=== PATIENT | male | born 1955 | race Caucasian/White ===

== ENCOUNTER 2019-04-14 18:40 | Inpatient (IN) | payer SELFPAY ==
[2019-04-14] MEDS ORDERED: Piperacillin/Tazobactam 3.375 GM VIAL ONE (21:47)
[2019-04-14] MEDS ORDERED: Ondansetron ODT 4 MG TAB SL PRN (23:11)
[2019-04-14] MEDS ORDERED: Ondansetron PF 4 MG/2 ML Vial IVP PRN (23:11)
[2019-04-14] MEDS: Lactated Ringer's 1,000 ML IV SCH (23:33)
[2019-04-15 00:58] VITALS: BMI 34.5
[2019-04-15] MEDS: Piperacillin/Tazobactam 3.375 GM in Sodium Chloride 0.9% 100 ML IVPB SCH ×4 (03:28→22:52)
[2019-04-15] MEDS ORDERED: Vancomycin HCl 1 GM in Premix Bag 1 BAG IVPB SCH (04:00)
[2019-04-15] MEDS: Vancomycin HCl 1.5 GM in Sodium Chloride 0.9% 250 ML 300 ML IVPB SCH ×3 (04:15→20:20)
[2019-04-15 04:47] LABS: #Basophils 0.1 thou/uL (0.0-0.2); #Eosinphils 0.4 thou/uL (0.0-0.7); #Lymphocytes 1.4 thou/uL (1.20-3.40); #Monocytes 0.8 thou/uL (0.11-0.59); #Neutrophils 5.4 thou/uL (1.40-6.50); %Basophils 0.6 % (0.0-1.0); %Eosinophils 4.6 % (0.0-10.0); %Lymphocytes 17.7 % (21.0-51.0); %Monocytes 10.1 % (0.0-10.0); %Neutrophils 66.9 % (42.0-75.0); Hemoglobin 12.3 g/dL (14.0-18.0); Mean Corpuscular HGB CONC 33.1 g/dL (32.0-36.0); Mean Corpuscular Hemoglobin 31.9 pg (27.0-31.0); Mean Corpuscular Volume 96.4 fL (78.0-98.0); Mean Platelet Volume 6.8 fL (7.4-10.4); Platelet Count 266 thou/uL (130-400); RBC Distribution Width 13.1 % (11.5-14.5); Red Blood Cell (RBC) Count 3.85 mill/uL (4.70-6.10)
[2019-04-15 05:08] LABS: Anion Gap 12 mmol/L (10-20); BUN (Urea Nitrogen) 9 mg/dL (8.4-25.7); Calc. Creatinine Clearance 151 mL/min (70-130); Calcium 8.9 mg/dL (7.8-10.44); Carbon Dioxide 25 mmol/L (23-31); Chloride 106 mmol/L (98-107); Estimated GFR-MDRD Greater than 90; Glucose 155 mg/dL (80-115); Potassium 3.8 mmol/L (3.5-5.1); Sodium 139 mmol/L (136-145)
--- NOTE | 2019-04-15 07:08 | HP ---
TIME OF ASSESSMENT: 0100 hours. PRIMARY CARE PHYSICIAN: None. HISTORY OF PRESENT ILLNESS: Mr. Miguel is a 63-year-old gentleman, who presents with increasing pain and swelling involving the left foot, which started 2 weeks ago. He has a history of prior amputation of the great big toe and has not had any followup. He has not seen anyone until today and states he became concerned about persisting and progressing infection involving the second toe on the left foot. The patient denies any history of diabetes mellitus or neuropathy. He was seen in the emergency department and had vitals done, which were normal. He did not have any fever. He had been noted to have multiple ulcerations to the anterior portion of the left foot with erythema, swelling, and foul odor. The patient was started on IV antibiotics with Zosyn and vancomycin. The case was discussed with Surgery and the plan is to admit the patient and Dr. Crump will assist the patient in the morning. The patient has undergone imaging of the foot, which showed amputation of the great toes when compared to the prior study done in August of 2014. Erosive change and periosteal reaction at the first MTP joint and distal first metatarsal could not be excluded. Otherwise, no other evidence for focal osteomyelitis. There was soft tissue swelling consistent with cellulitis. Laboratory studies were done, showing a normal white blood count. Renal function also normal. Lactic acid was 1. Currently, the patient is found resting comfortably and states he is in no discomfort. Reports 0/10 pain. REVIEW OF SYSTEMS: Apart from those mentioned above in HPI, all other review of systems are negative. PAST MEDICAL HISTORY: 1. Enlarged prostate, long indwelling Mcgill catheter. 2. Depression. PAST SURGICAL HISTORY: 1. Previous left great toe amputation. 2. Tonsillectomy. SOCIAL HISTORY: The patient denies any tobacco use, alcohol consumption, or illicit drug use. ALLERGIES: NO KNOWN DRUG ALLERGIES. CURRENT MEDICATIONS: 1. Proscar 5 mg p.o. daily. 2. Tamsulosin 0.4 mg p.o. daily. PHYSICAL EXAMINATION: GENERAL: The patient appears well developed, well nourished, is in no acute distress. He is found resting comfortably in bed. VITAL SIGNS: Temperature 97.9, pulse 72, respirations 18, O2 saturation 98% on room air, and blood pressure 140/66. HEENT: Normocephalic and atraumatic. Pupils are equal, round, reactive to light. Sclerae icterus. Oropharynx is clear. NECK: Supple. LUNGS: Clear to auscultation bilaterally without any wheezes, rales, or rhonchi. CARDIAC: Regular rate and rhythm. ABDOMEN: Soft, nontender, nondistended. Normoactive bowel sounds present. EXTREMITIES: Notable for bilateral lower extremity swelling, worse on the left. Some warmth to touch of the left ankle region without any erythema. The patient with dressing in place covering the left foot. Examination deferred as per patient's request. Per ED assessment, he had ulcerations present on the ventral surface toward the site of amputation with overlying cellulitis and foul order. NEUROLOGIC: Alert and oriented x3. No neuro deficits. LABORATORY DATA: WCC 8, Hgb 12.3, Hct 37.1, Platelets 266. Na+ 139, K+ 3.8, Anion Gap 12, BUN 9, Creatinine 0.82, GFR 90, Glucose 155, Calcium 8.9. IMAGING DATA: As per HPI. IMPRESSION AND PLAN: Mr. Miguel is a 63-year-old gentleman, who is being admitted for management of the following; 1. Left foot cellulitis. The patient is started on IV antibiotics, which we will continue. Consultation has been placed to General surgery as well as Wound Care. The patient without any pain at this present time. He remains afebrile and lactic acid is normal. We will continue to monitor. 2. BPH. The patient with long-term catheter in place and good urinary output. We will resume home medications once verified. 3. Gastrointestinal prophylaxis, with famotidine. 4. Deep venous thrombosis prophylaxis. Hold pharmacological prophylaxis until seen by the Surgery. The patient does have mechanical SCDs in place. Has longstanding lower extremity edema, which is worse on the left than the right. We will obtain venous Dopplers. 5. Code status, full. His surrogate decision maker is his friend, Gabby Franklin. The patient's case to be discussed with attending for further recommendations. Job ID: [id number] MTDD
--- NOTE | 2019-04-15 08:04 | ULT ---
PRELIMINARY REPORT/[facility]/EMERGENCY AFTER HOURS PROCEDURE: PROCEDURE INFORMATION: Exam: US Duplex Lower Extremity Veins Exam date and time: 04/15/2019 2:58 AM Clinical history: 63 years old, male; Edema, localized; Lower extremity, bilateral; Patient HX: Farrukh palacios TECHNIQUE: Imaging protocol: Real-time duplex ultrasound of the Lower Extremities with 2-D roberson scale, color Dop pler flow and spectral waveform analysis with image documentation. Complete exam focused on the bilat eral lower extremity veins. COMPARISON: No relevant prior studies available. FINDINGS: Right deep veins: Unremarkable. The common femoral, femoral, proximal profunda femoral and popliteal veins are patent without thrombus. Normal Doppler waveforms. Normal compressibility and/or augmentati on response. Right superficial veins: Saphenofemoral junction is patent without thrombus. Left deep veins: Unremarkable. The common femoral, femoral, proximal profunda femoral and popliteal v eins are patent without thrombus. Normal Doppler waveforms. Normal compressibility and/or augmentatio n response. Left superficial veins: Saphenofemoral junction is patent without thrombus. Lymph nodes: There are prominent lymph nodes within the left groin/upper thigh, probably reactive. Soft tissues: Mild soft tissue edema is noted. IMPRESSION: No evidence of acute DVT bilaterally. Thank you for allowing us to participate in the care of your patient. Dictated and Authenticated by: Benja Borrero MD 04/15/2019 4:04 AM Central Time ([place] & [place]) FINAL REPORT BILATERAL LOWER EXTREMITY VENOUS ULTRASOUND WITH DOPPLER: HISTORY: Lower extremity swelling, left greater than right. COMPARISON: None. TECHNIQUE: Roberson scale, color flow, Doppler imaging with spectral waveform analysis was performed in the left and right lower extremity venous system. FINDINGS: Bilaterally, there is no evidence of deep vein thrombus. Bilateral lower extremity edema is present. IMPRESSION: This report is in agreement with the preliminary report by [facility]. No evidence of thrombus in the left or right lower extremity deep venous system. POS: [facility]
[2019-04-15] MEDS: Lactated Ringer's 1,000 ML IV SCH (09:20)
[2019-04-15] MEDS: Famotidine/PF 20 mg/2ml Vial SLOW IVP SCH ×2 (09:22→20:20)
[2019-04-15] MEDS: Tamsulosin HCl 0.4 MG CAP PO SCH (09:22)
--- NOTE | 2019-04-15 12:51 | PDOC.EVN ---
Event Note - Event Note Event Note: Chart reviewde, the patient has been on antibiotics
[2019-04-15 19:40] LABS: Vancomycin, Trough 16.3 ug/mL
[2019-04-15] MEDS ORDERED: FLU VACC QS2019-20(6MOS UP)/PF 60 MCG/0.5 ML SYRINGE IM ONE (21:00)
[2019-04-15] MEDS: HYDROcodone/Acetaminophen 5/325 mg Tablet PO PRN (22:01)
[2019-04-16] MEDS: Vancomycin HCl 1.5 GM in Sodium Chloride 0.9% 250 ML 300 ML IVPB SCH ×3 (03:46→19:57)
[2019-04-16] MEDS: Piperacillin/Tazobactam 3.375 GM in Sodium Chloride 0.9% 100 ML IVPB SCH ×4 (05:11→22:37)
[2019-04-16] MEDS: HYDROcodone/Acetaminophen 5/325 mg Tablet PO PRN (05:12)
[2019-04-16 05:23] LABS: Glucose 138 mg/dL (80-115)
--- NOTE | 2019-04-16 07:10 | RAD ---
3 VIEWS LEFT FOOT: Date: 04/15/19 HISTORY: Osteomyelitis. COMPARISON: 04/14/19. FINDINGS: Again noted is amputation of the great toe, similar to the prior study, with cystic appearing changes involving the remaining portion of the proximal phalanx of the left great toe. There is increased de nsity seen in the soft tissues overlying the left great toe which may be related to mild periosteal r eaction present, which has progressed when compared to study in 2015. No definite osseous destruction is appreciated. Specifically, no osseous destruction is appreciated involving the distal phalanx of the left second toe. However, there is subcutaneous soft tissue swelling involving the left second to e. Minimal erosive-type change is seen involving the medial aspect of the left first metatarsal, but a similar finding was present on study in 2015. Degenerative changes involving the tarsal bones with posterior and plantar calcaneal enthesophytes ar e again seen. Subcutaneous soft tissue swelling involving the dorsal aspect of the foot is again seen. IMPRESSION: 1. Persistent subcutaneous soft tissue swelling dorsal aspect of the foot, as well as involving the toes. 2. There are no definitive findings to suggest osteomyelitis based on this examination. However, the re are lucencies seen within the residual remaining proximal phalanx of the left great toe and osteom yelitis could not be entirely excluded. However, osteomyelitis would be better evaluated on MRI of th e left foot. 3. Prominent subcutaneous soft tissue swelling at the dorsal aspect of the foot extending into the t oes. POS: OFF
[2019-04-16] MEDS ORDERED: Ondansetron PF 4 MG/2 ML Vial IVP PRN (07:41)
[2019-04-16] MEDS: Famotidine/PF 20 mg/2ml Vial SLOW IVP SCH ×2 (09:04→19:57)
[2019-04-16] MEDS: Tamsulosin HCl 0.4 MG CAP PO SCH (09:05)
--- NOTE | 2019-04-16 10:01 | PDOC.HOSPP ---
- Subjective Encounter Date: 04/16/19 Encounter Time: 10:00 Subjective: Feels okay, c/o nausea - Objective Vital Signs & Weight: Vital Signs (12 hours) Temp Pulse Resp BP Pulse Ox 04/16/19 07:53 98.6 F 70 16 154/75 H 96 04/16/19 03:46 98.2 F 70 17 156/72 H 96 04/15/19 23:00 98.7 F 77 20 135/70 96 Weight Admit Weight 254 lb 14.4 oz Weight 254 lb 14.4 oz I&O: 04/15/19 04/16/19 04/17/19 06:59 06:59 06:59 Intake Total 1175 1220 Output Total 600 1800 1200 Balance 575 -1800 20 Result Diagrams: 04/15/19 04:31 04/16/19 04:13 Hospitalist ROS - Medication Medications: Active Medications Generic Name Dose Route Start Last Admin Trade Name Freq PRN Reason Stop Dose Admin Hydrocodone Bitart/Acetaminophen 1 tab 04/15/19 02:02 04/16/19 05:12 [place] 5/325 PO 1 tab Q4H PRN Administration Moderate Pain (4-6) Famotidine 20 mg 04/15/19 09:00 04/16/19 09:04 Pepcid SLOW IVP 20 mg Q12HR MAURI Administration Piperacillin Sod/Tazobactam 100 mls @ 200 mls/hr 04/15/19 04:00 04/16/19 09: 05 Sod 3.375 gm/ Sodium Chloride IVPB 100 mls 0400,1000,1600,2200 MAURI Administration Vancomycin HCl 1.5 gm/ Sodium 300 mls @ 200 mls/hr 04/15/19 04:00 04/16/19 03 :46 Chloride IVPB 300 mls 0400,1200,2000 MAURI Administration Ondansetron HCl 4 mg 04/16/19 07:41 04/16/19 07:47 Zofran IVP 4 mg Q6H PRN Administration Nausea/Vomiting Tamsulosin HCl 0.4 mg 04/15/19 09:00 04/16/19 09:05 Flomax PO 0.4 mg DAILY MAURI Administration - Exam General Appearance: NAD, awake alert, ill appearing Eye: PERRL, anicteric sclera, scleral icterus ENT: normocephalic atraumatic, no oropharyngeal lesions, moist mucosa, dry oral mucosa Neck: supple, symmetric, no JVD, no thyromegaly, no lymphadenopathy, no carotid bruit, JVD Heart: RRR, no murmur, no gallops, no rubs, normal peripheral pulses, irregular , diminshed peripheral pulses, murmur present, II/IV, III/IV Respiratory: CTAB, no wheezes, no rales, no ronchi, normal chest expansion, no tachypnea, normal percussion, rales, rhonchi, tachypneic, wheezes Gastrointestinal: soft, non-tender, non-distended, normal bowel sounds, no palpable masses, no hepatomegaly, no splenomegaly, no bruit, no guarding, no rigidity, tender to palpation, distended, diminished bowl sounds, voluntary guarding Neurological: cranial nerve grossly intact, normal sensation to touch, no weakness, no focal deficits, no new deficit, facial droop, hemiplegia, speech deficit, vision deficit Hosp A/P (1) Cellulitis and abscess of foot Code(s): L03.119 - CELLULITIS OF UNSPECIFIED PART OF LIMB; L02.619 - CUTANEOUS ABSCESS OF UNSPECIFIED FOOT Status: Acute (2) Nausea Code(s): R11.0 - NAUSEA Status: Acute Plan: ID and podiatry consult oidered. Zofron mg prn for nausea. - Plan Zofron 4 mg prn
[2019-04-16] MEDS ORDERED: Gadobenate Dimeglumine 529 MG/1 ML (20ML VIAL) ONE (11:22)
[2019-04-16 11:24] LABS: #Eosinphils 0.2 thou/uL (0.0-0.7); #Lymphocytes 1.2 thou/uL (1.20-3.40); #Monocytes 0.6 thou/uL (0.11-0.59); #Neutrophils 7.7 thou/uL (1.40-6.50); %Basophils 0.4 % (0.0-1.0); %Eosinophils 2.2 % (0.0-10.0); %Lymphocytes 12.3 % (21.0-51.0); %Monocytes 5.9 % (0.0-10.0); %Neutrophils 79.2 % (42.0-75.0); Mean Corpuscular HGB CONC 31.8 g/dL (32.0-36.0); Mean Corpuscular Hemoglobin 31.2 pg (27.0-31.0); Mean Corpuscular Volume 98.2 fL (78.0-98.0); Mean Platelet Volume 6.8 fL (7.4-10.4); Platelet Count 287 thou/uL (130-400); RBC Distribution Width 13.2 % (11.5-14.5); Red Blood Cell (RBC) Count 4.16 mill/uL (4.70-6.10); White Blood Cell (WBC) Count 9.8 thou/uL (4.8-10.8)
[2019-04-16 11:49] LABS: Anion Gap 12 mmol/L (10-20); BUN (Urea Nitrogen) 10 mg/dL (8.4-25.7); Calc. Creatinine Clearance 145 mL/min (70-130); Calcium 8.8 mg/dL (7.8-10.44); Carbon Dioxide 24 mmol/L (23-31); Chloride 103 mmol/L (98-107); Estimated GFR-MDRD Greater than 90; Glucose 218 mg/dL (80-115); Potassium 3.9 mmol/L (3.5-5.1); Sodium 135 mmol/L (136-145)
[2019-04-16] MEDS: ARGININE 500 MG PO SCH (14:30)
--- NOTE | 2019-04-16 15:45 | CON ---
DATE OF CONSULTATION: 04/16/2019 REASON FOR CONSULT: Left foot ulcer with concern for osteomyelitis. HISTORY OF PRESENT ILLNESS: A 63-year-old gentleman with history of BPH requiring indwelling Mcgill catheter placement, who had a prior amputation of the proximal phalanx of the left hallux by Dr. Harvey about 4 years ago. About 2 years before the admission, he noticed an ulcer and he has had this ulcer since and never really did anything about it, it is not clear if this is because of his lack of insurance or was the motive, but now it has progressed to the point, where he has noticed a foul odor and erythema, some tenderness, which was associated with swelling. He also recently developed urinary retention. He has seen Dr. Myers after placement of a Mcgill catheter in the emergency room. According to his own recollection, Dr. Myers had planned to do a procedure, but he does not have financial means to and does not have insurance to schedule the procedure at that point. He is 2-year short of being eligible for Medicare. So, at this time because of the inflammatory change in the foot, he was admitted. Initial findings with normal vital signs essentially. O2 saturation was normal. Pertinent findings on physical exam showed swelling on the left first ray site, the hallux remnant is quite short compared with the right side. There is an irregular ulcer, which has about 1 cm depth of ulceration. I probed it, but could not detect any exposed bone. There is a sort of whitish tissue at the base, some bleeding was used while probing the area. The tunneling was really about not more than 0.8 cm approximately. There is [id number] pink erythema around the area. No significant drainage noted. Denies any headaches. No change in visual symptoms, sore throat, odynophagia, or dysphagia. No cough or sputum production. No chest pain. No abdominal pain or diarrhea. No dental or back pain. He continues the Mcgill catheter since August and he has it changed monthly by Dr. Myers. PAST MEDICAL HISTORY: BPH, depression, and cellulitis left lower extremity. PAST SURGICAL HISTORY: Left great toe partial amputation and tonsillectomy. SOCIAL HISTORY: Retired from disability. Never smoker. No alcoholic beverage use or other illicit drug use. ALLERGIES: NONE. CURRENT MEDICATIONS: 1. [place]. 2. Pepcid. 3. Zofran. 4. Zosyn. 5. Vancomycin. PHYSICAL EXAMINATION: VITAL SIGNS: Essentially normal temperature, T-max was 99.4, blood pressure 140/60, pulse 86, respirations 16 to 22, and O2 saturation 95. SKIN: Shows the area of ulceration irregular shaped. I could not probe bone. The bottom of it has kind of whitish tissue. A little exudate noted. A little bit of blood induced by the probing. Surrounding this area, there is some callus formation. Some superficial areas of bleeding. The skin of the first and second toes have this poor fissuring along the skin. It is a kind of lymphedematous skin in those two toes. The tip of the second toe has a shallow ulceration without exposed bone. There is no lymphadenopathy. HEENT: Ocular movements conjugate. Oral cavity was still with quite a few teeth in place. NECK: Supple. No jugular vein distention. LUNGS: Symmetric clear breath sounds. HEART: S1 and S2. Regular rate. No S3 or S4. ABDOMEN: Soft, not distended or tender. No ascites. No bladder distention. EXTREMITIES: No joint inflammatory activity. Pulses are 1+ in dorsalis pedis and posterior tibialis. Popliteals are 2+. He is able to move extremities with some limitations. NEUROLOGIC: His cognitive function appears to be intact. A little bit of a flat affect. LABORATORY STUDIES: WBC 8.0 and 9.8, hemoglobin 12.3, MCV 96, platelets 266, and neutrophil percentage 66. Chemistry was normal. Liver profile was not done. Vancomycin trough 16. Microbiology have 2 sets of blood culture, no growth at 48 hours. IMAGING STUDIES: Includes a venogram with no evidence of deep vein thrombosis, bilateral lower extremity edema. Recent foot x-ray done showed lucencies within the residual remaining proximal phalanx, left great toe. ASSESSMENT AND PLAN: Previous partial amputation of left first toe with now persistence of ulceration with radiological concern with osteomyelitis. We will order an MRI to be done with contrast and we will pursue further interventions according to the results of the MRI. May need further surgical debridement of the tip of the first ray depending on findings. Job ID: [id number]
--- NOTE | 2019-04-16 16:12 | MRI ---
MRI left foot with and without contrast Clinical history osteomyelitis, osseous lucency of residual great toe Reference made preceding radiograph, previous day FINDINGS: The small osseous remnant of the base of the great toe which demonstrates focal lucencies o n preceding radiograph demonstrates a predominantly low T1 signal, and there is increased T2 signal along the confines of the remnant proximal phalangeal base of the great toe.. There is associated enh ancement as well. Soft tissue enhancement of the medial soft tissues notably involving the remnant great toe indicates overlying cellulitis. No drainable fluid collection to indicate abscess is seen. There is scattered osteoarthritis. IMPRESSION: Findings indicate cellulitis of the residual great toe, as well as edema and enhancement at the mild remaining remnant great toe proximal phalanx indicative of associated osteomyelitis. No drainable abscess. Transcribed Date/Time: 04/16/2019 4:36 PM
[2019-04-16 19:32] LABS: Vancomycin, Trough 19.5 ug/mL
[2019-04-16] MEDS ORDERED: Dextrose 5% in Water 1,000 ML IV PRN (19:49)
[2019-04-16] MEDS ORDERED: Dextrose 50% Abboject 50 ML SYRINGE SLOW IVP PRN (19:49)
[2019-04-16] MEDS ORDERED: HumaLOG 300 UNITS/3 ML VIAL SC PRN (19:49)
[2019-04-16 20:59] LABS: Hemoglobin A1c 6.9 % (4.0-6.0)
[2019-04-16] MEDS: Melatonin 3 MG TAB PO PRN (22:37)
[2019-04-17] MEDS: Vancomycin HCl 1.5 GM in Sodium Chloride 0.9% 250 ML 300 ML IVPB SCH ×3 (03:34→20:28)
[2019-04-17] MEDS: Piperacillin/Tazobactam 3.375 GM in Sodium Chloride 0.9% 100 ML IVPB SCH ×4 (05:29→23:03)
[2019-04-17] MEDS: Famotidine/PF 20 mg/2ml Vial SLOW IVP SCH ×2 (09:50→20:28)
[2019-04-17] MEDS: Tamsulosin HCl 0.4 MG CAP PO SCH (09:50)
[2019-04-17] MEDS ORDERED: ARGININE 500 MG PO SCH (12:00)
[2019-04-17] MEDS: HumaLOG 300 UNITS/3 ML VIAL SC PRN ×2 (12:22→17:47)
[2019-04-17] MEDS: ARGININE 500 MG PO SCH (12:23)
--- NOTE | 2019-04-17 15:34 | PDOC.HOSPP ---
- Subjective Encounter Date: 04/17/19 Encounter Time: 15:32 Subjective: No new complaints - Objective Vital Signs & Weight: Vital Signs (12 hours) Temp Pulse Resp BP Pulse Ox 04/17/19 11:57 98.4 F 80 18 151/75 H 97 04/17/19 07:30 98.5 F 78 18 134/77 95 04/17/19 03:34 98.4 F 79 17 130/76 94 L Weight Admit Weight 254 lb 14.4 oz Weight 254 lb 14.4 oz I&O: 04/16/19 04/17/19 04/18/19 06:59 06:59 06:59 Intake Total 3840 Output Total 1800 7150 Balance -1800 -3310 Result Diagrams: 04/16/19 10:59 04/16/19 10:59 Additional Labs: Accuchecks 04/17/19 04/17/19 04/16/19 11:56 05:32 20:48 POC Glucose 236 H 146 H 176 H Hospitalist ROS - Medication Medications: Active Medications Generic Name Dose Route Start Last Admin Trade Name Freq PRN Reason Stop Dose Admin Hydrocodone Bitart/Acetaminophen 1 tab 04/15/19 02:02 04/16/19 05:12 [place] 5/325 PO 1 tab Q4H PRN Administration Moderate Pain (4-6) Famotidine 20 mg 04/15/19 09:00 04/17/19 09:50 Pepcid SLOW IVP 20 mg Q12HR MAURI Administration Piperacillin Sod/Tazobactam 100 mls @ 200 mls/hr 04/15/19 04:00 04/17/19 09: 50 Sod 3.375 gm/ Sodium Chloride IVPB 100 mls 0400,1000,1600,2200 MAURI Administration Vancomycin HCl 1.5 gm/ Sodium 300 mls @ 200 mls/hr 04/15/19 04:00 04/17/19 12 :22 Chloride IVPB 300 mls 0400,1200,2000 MAURI Administration Insulin Human Lispro 0 units 04/16/19 19:49 04/17/19 12:22 Humalog SC 3 unit .MILD SLIDING SCALE PRN Administration Mild Correctional Scale Melatonin 3 mg 04/16/19 22:27 04/16/19 22:37 Melatonin PO 3 mg HSPRN PRN Administration Insomnia Ondansetron HCl 4 mg 04/16/19 07:41 04/16/19 07:47 Zofran IVP 4 mg Q6H PRN Administration Nausea/Vomiting L-Arginine 500mg 1 each 04/16/19 12:00 04/17/19 12:23 Patient's Home PO 1 each Medication 1200 MAURI Administration Tamsulosin HCl 0.4 mg 04/15/19 09:00 04/17/19 09:50 Flomax PO 0.4 mg DAILY MAURI Administration - Exam General Appearance: NAD, awake alert, ill appearing Eye: PERRL, anicteric sclera, scleral icterus ENT: normocephalic atraumatic, no oropharyngeal lesions, moist mucosa, dry oral mucosa Neck: supple, symmetric, no JVD, no thyromegaly, no lymphadenopathy, no carotid bruit, JVD Respiratory: CTAB, no wheezes, no rales, no ronchi, normal chest expansion, no tachypnea, normal percussion, rales, rhonchi, tachypneic, wheezes Gastrointestinal: soft, non-tender, non-distended, normal bowel sounds, no palpable masses, no hepatomegaly, no splenomegaly, no bruit, no guarding, no rigidity, tender to palpation, distended, diminished bowl sounds, voluntary guarding Extremities: no cyanosis, no clubbing, no edema, 1+ LE edema, 2+ LE edema, clubbing Skin: normal turgor, no lesions, no rashes, tenting Neurological: cranial nerve grossly intact, normal sensation to touch, no weakness, no focal deficits, no new deficit, facial droop, hemiplegia, speech deficit, vision deficit Musculoskeletal: normal tone, normal strength, no muscle wasting, generalized weakness, diffuse muscle atrophy Psychiatric: normal affect, normal behavior, A&O x 3, oriented to person, oriented to place, oriented to time, not oriented, flat affect, somnolent, lethargic Hosp A/P (1) Cellulitis and abscess of foot Code(s): L03.119 - CELLULITIS OF UNSPECIFIED PART OF LIMB; L02.619 - CUTANEOUS ABSCESS OF UNSPECIFIED FOOT Status: Acute (2) Nausea Code(s): R11.0 - NAUSEA Status: Acute - Plan Zofron 4 mg prn, Consider oral anti diabetics like metformin once the infection gets better. MRI reviewd, Apreciaye ID consult
[2019-04-17] MEDS: HYDROcodone/Acetaminophen 5/325 mg Tablet PO PRN (16:19)
[2019-04-18] MEDS: Vancomycin HCl 1.5 GM in Sodium Chloride 0.9% 250 ML 300 ML IVPB SCH ×3 (04:29→20:13)
[2019-04-18] MEDS: Piperacillin/Tazobactam 3.375 GM in Sodium Chloride 0.9% 100 ML IVPB SCH ×4 (04:29→22:29)
[2019-04-18] MEDS ORDERED: Bacitracin Zinc Ointment 30 gm TUBE ONE (06:52)
[2019-04-18] MEDS ORDERED: Lidocaine 2% PF 5 ML VIAL ONE (06:52)
[2019-04-18] MEDS ORDERED: Bupivacaine PF 0.5% 30 ML VIAL ONE (06:52)
[2019-04-18] MEDS ORDERED: Fentanyl 100 MCG/2 ML VIAL ONE (07:00)
[2019-04-18] MEDS ORDERED: Ondansetron PF 4 MG/2 ML Vial ONE (09:03)
[2019-04-18] MEDS ORDERED: Ondansetron HCl/PF 4 MG/2 ML Vial IVP PRN (09:22)
[2019-04-18] MEDS ORDERED: Promethazine HCl 25 MG/ML VIAL IM PRN (09:22)
[2019-04-18] MEDS ORDERED: Promethazine HCl 25 MG/ML VIAL SLOW IVP PRN (09:22)
[2019-04-18] MEDS: Famotidine/PF 20 mg/2ml Vial SLOW IVP SCH ×2 (09:59→20:13)
[2019-04-18] MEDS: Tamsulosin HCl 0.4 MG CAP PO SCH (09:59)
[2019-04-18] MEDS: ARGININE 500 MG PO SCH (11:29)
[2019-04-18] MEDS ORDERED: Lidocaine 1% PF 5 ML VIAL ONE (12:47)
[2019-04-18] MEDS ORDERED: PROPOFOL 200 MG/20 ML VIAL ONE (12:47)
--- NOTE | 2019-04-18 14:37 | PDOC.HOSPP ---
- Subjective Encounter Date: 04/18/19 Encounter Time: 14:35 Subjective: No new complaints - Objective Vital Signs & Weight: Vital Signs (12 hours) Temp Pulse Resp BP Pulse Ox 04/18/19 09:35 96.7 F L 77 16 152/78 H 96 04/18/19 03:27 98.5 F 77 16 157/82 H 96 Weight Admit Weight 254 lb 14.4 oz Weight 254 lb 14.4 oz I&O: 04/17/19 04/18/19 04/19/19 06:59 06:59 06:59 Intake Total 3840 2250 Output Total 7179 1695 Balance -3310 555 Result Diagrams: 04/16/19 10:59 04/16/19 10:59 Additional Labs: Accuchecks 04/18/19 04/18/19 04/17/19 11:25 05:26 20:37 POC Glucose 144 H 137 H 132 H 04/17/19 16:09 POC Glucose 167 H Hospitalist ROS - Medication Medications: Active Medications Generic Name Dose Route Start Last Admin Trade Name Freq PRN Reason Stop Dose Admin Hydrocodone Bitart/Acetaminophen 1 tab 04/15/19 02:02 04/17/19 16:19 [place] 5/325 PO 1 tab Q4H PRN Administration Moderate Pain (4-6) Famotidine 20 mg 04/15/19 09:00 04/18/19 09:59 Pepcid SLOW IVP 20 mg Q12HR MAURI Administration Piperacillin Sod/Tazobactam 100 mls @ 200 mls/hr 04/15/19 04:00 04/18/19 09: 59 Sod 3.375 gm/ Sodium Chloride IVPB 100 mls 0400,1000,1600,2200 MAURI Administration Vancomycin HCl 1.5 gm/ Sodium 300 mls @ 200 mls/hr 04/15/19 04:00 04/18/19 11 :30 Chloride IVPB 300 mls 0400,1200,2000 MAURI Administration Insulin Human Lispro 0 units 04/16/19 19:49 04/17/19 17:47 Humalog SC 2 unit .MILD SLIDING SCALE PRN Administration Mild Correctional Scale Melatonin 3 mg 04/16/19 22:27 04/16/19 22:37 Melatonin PO 3 mg HSPRN PRN Administration Insomnia Ondansetron HCl 4 mg 04/16/19 07:41 04/16/19 07:47 Zofran IVP 4 mg Q6H PRN Administration Nausea/Vomiting L-Arginine 500mg 1 each 04/16/19 12:00 04/18/19 11:29 Patient's Home PO 1 each Medication 1200 MAURI Administration Tamsulosin HCl 0.4 mg 04/15/19 09:00 04/18/19 09:59 Flomax PO 0.4 mg DAILY MAURI Administration - Exam General Appearance: NAD, awake alert, ill appearing ENT: normocephalic atraumatic, no oropharyngeal lesions, moist mucosa, dry oral mucosa Neck: supple, symmetric, no JVD, no thyromegaly, no lymphadenopathy, no carotid bruit, JVD Heart: RRR, no murmur, no gallops, no rubs, normal peripheral pulses, irregular , diminshed peripheral pulses, murmur present, II/IV, III/IV Respiratory: CTAB, no wheezes, no rales, no ronchi, normal chest expansion, no tachypnea, normal percussion, rales, rhonchi, tachypneic, wheezes Gastrointestinal: soft, non-tender, non-distended, normal bowel sounds, no palpable masses, no hepatomegaly, no splenomegaly, no bruit, no guarding, no rigidity, tender to palpation, distended, diminished bowl sounds, voluntary guarding Hosp A/P (1) Cellulitis and abscess of foot Code(s): L03.119 - CELLULITIS OF UNSPECIFIED PART OF LIMB; L02.619 - CUTANEOUS ABSCESS OF UNSPECIFIED FOOT Status: Acute (2) Nausea Code(s): R11.0 - NAUSEA Status: Acute - Plan Zofron 4 mg prn, Consider oral anti diabetics like metformin once the infection gets better. MRI reviewd, Apreciate ID consult, continue IV antibiotics. Podiatry consult.
[2019-04-18] MEDS: HumaLOG 300 UNITS/3 ML VIAL SC PRN (17:32)
[2019-04-19] MEDS: Vancomycin HCl 1.5 GM in Sodium Chloride 0.9% 250 ML 300 ML IVPB SCH ×3 (03:58→19:43)
[2019-04-19] MEDS: Piperacillin/Tazobactam 3.375 GM in Sodium Chloride 0.9% 100 ML IVPB SCH ×5 (05:38→23:02)
[2019-04-19] MEDS: Tamsulosin HCl 0.4 MG CAP PO SCH (08:30)
[2019-04-19] MEDS: Famotidine/PF 20 mg/2ml Vial SLOW IVP SCH ×2 (08:30→19:44)
[2019-04-19] MEDS: ARGININE 500 MG PO SCH (08:30)
[2019-04-19] MEDS: HumaLOG 300 UNITS/3 ML VIAL SC PRN ×2 (11:08→17:14)
[2019-04-19] MEDS: HYDROcodone/Acetaminophen 5/325 mg Tablet PO PRN (19:11)
[2019-04-19 19:29] LABS: Vancomycin, Trough 23.9 ug/mL
[2019-04-19] MEDS: Melatonin 3 MG TAB PO PRN (20:20)
--- NOTE | 2019-04-19 23:53 | PDOC.HOSPP ---
- Subjective Encounter Date: 04/19/19 Encounter Time: 18:00 Subjective: Patieint is doing better. He reports some swelling in his left foot. Currently on IV vancomycin and zosyn He states nobody from podiatry has seen him. He says he stopped seeing podiatry on his own. He cut his own toe-nail recently and caused an ulcer which started all of this - Objective Vital Signs & Weight: Vital Signs (12 hours) Temp Pulse Resp BP BP Pulse Ox 04/19/19 20:00 97.9 F 87 18 161/75 H 96 04/19/19 16:25 99.8 F H 88 20 156/75 H 96 04/19/19 13:23 93 155/73 H 04/19/19 12:00 99.5 F 87 20 180/79 H 96 Weight Admit Weight 254 lb 14.4 oz Weight 254 lb 14.4 oz I&O: 04/18/19 04/19/19 04/20/19 06:59 06:59 06:59 Intake Total 2250 1780 2055 Output Total 1695 1500 2425 Balance 555 280 -370 Result Diagrams: 04/16/19 10:59 04/16/19 10:59 Additional Labs: Accuchecks 04/19/19 04/19/19 04/19/19 19:45 16:33 11:10 POC Glucose 152 H 204 H 199 H 04/19/19 05:20 POC Glucose 186 H Hospitalist ROS - Review of Systems Constitutional: denies: fever Eyes: denies: vision change ENT: denies: mouth swelling Cardiovascular: denies: chest pain - Medication Medications: Active Medications Generic Name Dose Route Start Last Admin Trade Name Ashutosh PRN Reason Stop Dose Admin Hydrocodone Bitart/Acetaminophen 1 tab 04/15/19 02:02 04/19/19 19:11 [place] 5/325 PO 1 tab Q4H PRN Administration Moderate Pain (4-6) Famotidine 20 mg 04/15/19 09:00 04/19/19 19:44 Pepcid SLOW IVP 20 mg Q12HR MAURI Administration Piperacillin Sod/Tazobactam 100 mls @ 200 mls/hr 04/19/19 06:00 04/19/19 23: 02 Sod 3.375 gm/ Sodium Chloride IVPB 100 mls Q6HR MAURI Administration Insulin Human Lispro 0 units 04/16/19 19:49 04/19/19 17:14 Humalog SC 2 unit .MILD SLIDING SCALE PRN Administration Mild Correctional Scale Insulin Human Lispro 0 units 04/16/19 19:49 04/18/19 22:31 Humalog SC 2 unit .BEDTIME SLIDING SC PRN Administration Bedtime Correctional Scale Melatonin 3 mg 04/16/19 22:27 04/19/19 20:20 Melatonin PO 3 mg HSPRN PRN Administration Insomnia Ondansetron HCl 4 mg 04/16/19 07:41 04/16/19 07:47 Zofran IVP 4 mg Q6H PRN Administration Nausea/Vomiting L-Arginine 500mg 1 each 04/16/19 12:00 04/19/19 08:30 Patient's Home PO 1 each Medication 1200 MAURI Administration Tamsulosin HCl 0.4 mg 04/15/19 09:00 04/19/19 08:30 Flomax PO 0.4 mg DAILY MAURI Administration - Exam General Appearance: NAD, awake alert Eye: PERRL, anicteric sclera ENT: normocephalic atraumatic, no oropharyngeal lesions Neck: supple, symmetric, no JVD, no thyromegaly Heart: RRR, no murmur, no gallops, no rubs Respiratory: CTAB, no wheezes, no rales, no ronchi Gastrointestinal: soft, non-tender, non-distended Extremities: no cyanosis, no clubbing, no edema Skin: normal turgor, no lesions, no rashes Neurological: cranial nerve grossly intact, normal sensation to touch, no focal deficits, no new deficit Musculoskeletal - other findings: left toe ulcer Hosp A/P - Plan MRI LLE: advanced osteomyelitis of Left great toe, no drainalbe abscess Foot X ray: soft tissue swelling Venous dopplers : no DVT This is a 63 year old male with osteomyelitis of left great toe Osteomyelitis left great toe - on vancomycin IV day 5, zosyn day 1. MRI done which confirmed osteomyelitis - will try reaching out to podiatry, if not then consult general surgery, may need more debridement per ID. Will touch base with ID again as well. He is currently on vacation until - continue wound care BPH - flomax Depression Type II diabetes - insulin sliding scale Macrocytic anemia - B12 and folate Code status: full code
[2019-04-20] MEDS: Vancomycin HCl 1.25 GM in Sodium Chloride 0.9% 250 ML 250 ML IVPB SCH ×3 (03:03→20:13)
[2019-04-20] MEDS ORDERED: Vancomycin HCl 1 GM in Premix Bag 1 BAG IVPB SCH (04:00)
[2019-04-20] MEDS: Piperacillin/Tazobactam 3.375 GM in Sodium Chloride 0.9% 100 ML IVPB SCH ×3 (05:47→18:27)
[2019-04-20] MEDS: Tamsulosin HCl 0.4 MG CAP PO SCH (08:26)
[2019-04-20] MEDS: Famotidine/PF 20 mg/2ml Vial SLOW IVP SCH ×2 (08:26→20:13)
[2019-04-20] MEDS: ARGININE 500 MG PO SCH (08:27)
[2019-04-20] MEDS: HumaLOG 300 UNITS/3 ML VIAL SC PRN ×2 (11:15→16:29)
[2019-04-20] MEDS: HYDROcodone/Acetaminophen 5/325 mg Tablet PO PRN (18:39)
--- NOTE | 2019-04-20 20:02 | PDOC.HOSPP ---
- Subjective Encounter Date: 04/20/19 Encounter Time: 15:00 Subjective: Patient doing well with no complaints. Denies foot pain or swelling. - Objective Vital Signs & Weight: Vital Signs (12 hours) Temp Pulse Resp BP Pulse Ox 04/20/19 15:40 98.7 F 89 18 151/74 H 96 04/20/19 11:05 98.5 F 87 16 158/83 H 95 04/20/19 08:25 95 Weight Admit Weight 254 lb 14.4 oz Weight 254 lb 14.4 oz I&O: 04/19/19 04/20/19 04/21/19 06:59 06:59 06:59 Intake Total 1780 2055 1840 Output Total 2465 2341 5161 Balance 895 -7512 -7612 Result Diagrams: 04/16/19 10:59 04/16/19 10:59 Additional Labs: Accuchecks 04/20/19 04/20/19 04/20/19 15:46 11:11 05:53 POC Glucose 179 H 164 H 139 H 04/19/19 19:45 POC Glucose 152 H Hospitalist ROS - Review of Systems Eyes: denies: pain, vision change - Medication Medications: Active Medications Generic Name Dose Route Start Last Admin Trade Name Freq PRN Reason Stop Dose Admin Hydrocodone Bitart/Acetaminophen 1 tab 04/15/19 02:02 04/20/19 18:39 [place] 5/325 PO 1 tab Q4H PRN Administration Moderate Pain (4-6) Famotidine 20 mg 04/15/19 09:00 04/20/19 08:26 Pepcid SLOW IVP 20 mg Q12HR MAURI Administration Piperacillin Sod/Tazobactam 100 mls @ 200 mls/hr 04/19/19 06:00 04/20/19 18: 27 Sod 3.375 gm/ Sodium Chloride IVPB 100 mls Q6HR MAURI Administration Vancomycin HCl 1.25 gm/ Sodium 250 mls @ 166.667 mls/hr 04/20/19 04:00 12:16 Chloride IVPB 250 mls 0400,1200,2000 MAURI Administration Insulin Human Lispro 0 units 04/16/19 19:49 04/20/19 16:29 Humalog SC 2 unit .MILD SLIDING SCALE PRN Administration Mild Correctional Scale Insulin Human Lispro 0 units 04/16/19 19:49 04/18/19 22:31 Humalog SC 2 unit .BEDTIME SLIDING SC PRN Administration Bedtime Correctional Scale Melatonin 3 mg 04/16/19 22:27 04/19/19 20:20 Melatonin PO 3 mg HSPRN PRN Administration Insomnia Ondansetron HCl 4 mg 04/16/19 07:41 04/16/19 07:47 Zofran IVP 4 mg Q6H PRN Administration Nausea/Vomiting L-Arginine 500mg 1 each 04/16/19 12:00 04/20/19 08:27 Patient's Home PO 1 each Medication 1200 MAURI Administration Tamsulosin HCl 0.4 mg 04/15/19 09:00 04/20/19 08:26 Flomax PO 0.4 mg DAILY MAURI Administration - Exam General Appearance: NAD, awake alert Eye: PERRL, anicteric sclera ENT: normocephalic atraumatic, no oropharyngeal lesions Neck: supple, symmetric, no JVD Heart: RRR, no murmur, no gallops Respiratory: CTAB, no wheezes, no rales Gastrointestinal: soft, non-tender, non-distended Extremities - other findings: gangrene third and fifth toe Skin: normal turgor, no lesions, no rashes Neurological: cranial nerve grossly intact, normal sensation to touch, no focal deficits, no new deficit Musculoskeletal: normal tone, normal strength, no muscle wasting Psychiatric: normal affect, normal behavior, A&O x 3, oriented to person, oriented to place, oriented to time Hosp A/P - Plan MRI LLE: advanced osteomyelitis of Left great toe, no drainalbe abscess Foot X ray: soft tissue swelling Venous dopplers : no DVT This is a 63 year old male with osteomyelitis of left great toe Osteomyelitis left great toe s/p amputation - patient had amputation done on big toe. - on vancomycin IV day 6, zosyn day 2. MRI done which confirmed osteomyelitis - no cultures sent intraoperatively ,will touch base with ID with regards to antibiotics BPH - flomax Depression Type II diabetes - insulin sliding scale Macrocytic anemia - B12 and folate Code status: full code
[2019-04-20] MEDS: Melatonin 3 MG TAB PO PRN (20:13)
[2019-04-21] MEDS: Piperacillin/Tazobactam 3.375 GM in Sodium Chloride 0.9% 100 ML IVPB SCH ×3 (00:42→11:04)
[2019-04-21] MEDS: HYDROcodone/Acetaminophen 5/325 mg Tablet PO PRN (00:45)
[2019-04-21 04:06] LABS: Hemoglobin 13.1 g/dL (14.0-18.0); Mean Corpuscular HGB CONC 31.1 g/dL (32.0-36.0); Mean Corpuscular Hemoglobin 29.8 pg (27.0-31.0); Mean Corpuscular Volume 95.6 fL (78.0-98.0); Mean Platelet Volume 6.7 fL (7.4-10.4); Platelet Count 299 thou/uL (130-400); RBC Distribution Width 13.2 % (11.5-14.5); Red Blood Cell (RBC) Count 4.39 mill/uL (4.70-6.10); White Blood Cell (WBC) Count 10.1 thou/uL (4.8-10.8)
[2019-04-21 04:25] LABS: Vancomycin, Trough 20.5 ug/mL
[2019-04-21 04:28] LABS: Anion Gap 12 mmol/L (10-20); BUN (Urea Nitrogen) 16 mg/dL (8.4-25.7); Calc. Creatinine Clearance 144 mL/min (70-130); Calcium 9.8 mg/dL (7.8-10.44); Carbon Dioxide 24 mmol/L (23-31); Chloride 102 mmol/L (98-107); Estimated GFR-MDRD 90; Glucose 163 mg/dL (80-115); Potassium 4.1 mmol/L (3.5-5.1); Sodium 134 mmol/L (136-145)
[2019-04-21] MEDS: Vancomycin HCl 1.25 GM in Sodium Chloride 0.9% 250 ML 250 ML IVPB SCH ×2 (05:00→12:23)
[2019-04-21] MEDS: Tamsulosin HCl 0.4 MG CAP PO SCH (08:27)
[2019-04-21] MEDS: Famotidine/PF 20 mg/2ml Vial SLOW IVP SCH (08:27)
[2019-04-21] MEDS: HumaLOG 300 UNITS/3 ML VIAL SC PRN (12:26)
[2019-04-21] MEDS: ARGININE 500 MG PO SCH (12:27)
[2019-04-21 15:31] VITALS: BP 170/77; TEMP 98.9
[2019-04-21] MEDS ORDERED: Famotidine 20 MG TAB PO SCH (21:00)
--- NOTE | 2019-04-22 11:51 | OP ---
DATE OF PROCEDURE: 04/18/2019 ASSISTANTS: None. FACILITY: [facility], [place]. PREOPERATIVE DIAGNOSIS: Ulcer plantar aspect left foot, plantar to left first metatarsal head. POSTOPERATIVE DIAGNOSIS: Ulcer plantar aspect left foot, plantar to left first metatarsal head. PROCEDURE PERFORMED: Debridement and exploration of ulcer, left foot, plantar to first metatarsal head. ANESTHESIA: General with local. FLUIDS: P.r.n. anesthesia. ESTIMATED BLOOD LOSS: Less than 2 mL. DESCRIPTION OF PROCEDURE: The patient was brought to the OR and placed in the supine position. The left foot was prepped and draped in the usual sterile manner. The tourniquet was not used. Esmarch was not used. Right at the procedure, approximately 10 mL of a 50:50 solution of 2% lidocaine and 0.5% plain Marcaine, 50 mix was injected in an H-block proximal to the head of the first metatarsal. Once this was accomplished, a 10 blade was used to skive off the hyperkeratotic tissue surrounding the ulcer. A lacrimal probe was then inserted into the wound to palpate over sinus tracts. The area was then explored for any possible evidence of osteomyelitis involving the sesamoids or head of the first metatarsal. No bony tissue was palpated or visualized. A sterile dressing was applied to the wound. The patient tolerated the procedure well. He left the OR with all vital signs stable and intact. The patient was discharged back to his room. Job ID: [id number]
--- NOTE | 2019-04-22 11:51 | DIS ---
DATE OF ADMISSION: 04/14/2019 DATE OF DISCHARGE: 04/21/2019 BRIEF HISTORY OF PRESENT ILLNESS: This is a 63-year-old male with a history of BPH, depression, indwelling Mcgill catheter placement, who had a prior amputation of the proximal left hallux 4 years ago, who presented with a persistent ulcer in his left great toe. The patient states that he noticed a foul smelling discharge and presented to the ER. Vital signs on admission were normal. The patient had a foot x-ray on 04/15, which showed persistent subcutaneous soft tissue swelling involving the toes. The patient also had a venogram done that showed no evidence of DVT bilaterally. The patient was admitted for possible cellulitis. Left third and fifth toe osteomyelitis: The patient was started on IV vancomycin and Zosyn. An MRI of his foot was done on 04/16, which confirmed osteomyelitis of the left proximal phalanx. Infectious Disease and Podiatry were consulted. The patient underwent an amputation of his left great toe on 04/14. There were no intraoperative cultures sent during that time. Per ID, the patient will be discharged on oral ciprofloxacin and doxycycline for an additional 7 to 10 days. The patient's wounds were to be cleansed with normal saline and he is to apply Multidex powder to his wound bed and cover with wet-to-dry dressings. He is to change his dressings every 3 days, and if it gets dirty, as needed. Podiatry recommended that the patient wear an offloading boot for the next 1 month. The patient needs to follow up with his PCP and his glass novelty maker in a week. BPH: The patient to continue on Flomax. Type 2 diabetes. The patient was resumed on his metformin. Hypertension: The patient was resumed on lisinopril. All other medications were resumed. DISCHARGE PHYSICAL EXAMINATION: VITAL SIGNS: Temperature 98, pulse 78, respiratory rate 16, O2 saturations 96% on room air, blood pressure 155/68. GENERAL: The patient is alert, awake, and oriented x3. CVS: Regular rate and rhythm with no murmurs, rubs, or gallops. LUNGS: Clear to auscultation bilaterally. ABDOMEN: Positive bowel sounds. Soft, nontender, nondistended. EXTREMITIES: Status post amputation of the left great toe. The patient does have some swelling of his left foot. Postoperatively, it is wrapped in a bandage. 2 + dorsal pedal pulses are felt. Right lower extremity is unremarkable. PERTINENT LABORATORY DATA: CBC on 04/21: Hemoglobin 13.1, rest of CBC is normal. BMP on 04/21: Sodium 134, rest of BMP is normal. Hemoglobin A1c on 04/16: 6.9. PERTINENT IMAGING STUDIES: Venogram on 04/15: No evidence of DVT. Foot x-ray on 04/15: Soft tissue swelling was noted in the dorsal aspect of the foot as well as the toes. MRI lower extremity on 04/16: Osteomyelitis advanced of the left great toe, no drainable abscess. DISCHARGE CONDITION: Stable. ACTIVITIES: As tolerated. DIET RESTRICTION: Diabetic diet. DISCHARGE MEDICATIONS: New medications: 1. Ciprofloxacin 500 mg p.o. q.12 hours for 20 tablets. 2. Doxycycline 100 mg p.o. b.i.d. for 20 capsules. All other home medications were resumed. Please refer to med reconciliation worksheet. ISSUES TO BE ADDRESSED AT FOLLOWUP: The patient needs to follow up with his glass novelty maker, Dr. Harvey in a week, and his PCP in a week. He needs to wear offloading boot for the next 1 month and take ciprofloxacin for 10 days and doxycycline for 10 days. Job ID: [id number] MTDD
--- NOTE | 2019-04-23 05:56 | PQF ---
[employer] JAMIL LOCKHART DPM [id number] CLINICAL DOCUMENTATION CLARIFICATION FORM: POST DISCHARGE Addendum to original discharge summary date: ____ Late entry note date: __ DATE: 04/23/2019 ATTN: JAMIL LOCKHART DPM Please exercise your independent, professional judgment in responding to the clarification form. Clinical indicators are provided on the bottom of this form for your review Please check appropriate box(s): [ ] Excisional Debridement: [ ] Excised [ ] Cut away [ ] Other: Depth / layer: (deepest layer of debridement): [ ] Skin[ ] SubQ Tissue [ ] Fascia [ ] Muscle [ ] Tendon [ ] Bone Appearance of wound: (e.g., down to fresh bleeding tissue, etc.)___ Margins: (please specify): / x x Instruments used: [ ] Scissors [ ] Scalpel [ ] Curette [ ] Soft tissue clipper [ ] Other: [ ] Non-excisional Debridement: (Removal by flushing, brushing, chemical, or washing) Depth / layer: (deepest layer of debridement): [ ] Skin[ ] Subcutaneous [ ] Fascia [ ] Muscle [ ] Tendon [ ] Bone [ ] Incision and Drainage only (No Debridement): Depth:[ ] Skin [ ] Subcutaneous [ ] Fascia [ ] Muscle [ ] Tendon [ ] Bone [ ] Other procedure diagnosis [ ] Unable to determine For continuity of documentation, please document condition throughout progress notes and discharge summary. Thank You. CLINICAL INDICATORS - SIGNS / SYMPTOMS / LABS Debridement and exploration of ulcer. left foot , plantar to first metatarsal head - Documented in Operative report 10 blade was used to skive off the hyperkerotic tissue surrounding the ulcer - Documented in Operative report Lacrimal probe was then inserted into the wound to palpate over sinus tract - Documented in Operative report Possibly evidance of osteomyelities involving the sesamoids or head of the first metatarsal - Documented in Operative report The tourniquet was not used. Esmatch was not used - Documented in Operative report RISK FACTORS Left foot cellulities - Documented in H&P on 04/14 by Deisi anderson DM TREATMENTS: A sterile dressing was applied to the world - Documented in Operative report [employer] (This form is maintained as a part of the permanent medical record) 2014 [employer]. All Rights Reserved [email or web address] [not provided] MTDD
== END 2019-04-21 18:00 | disposition home or self-care (01) | DRG 638 ==
LOC: ERS 18:40 → MERGE 20:06 → SURG B 20:06 → OBSVTOIN 20:06
PROVIDERS: ADMIT Family Medicine; ATTEND Family Medicine
PROC: 0HBNXZZ Excision of Left Foot Skin, External Approach (ICD-10-PCS; principal; 2019-04-18)
DX: E11.69 Type 2 diabetes mellitus with other specified complication (principal); L03.116 Cellulitis of left lower limb; L02.619 Cutaneous abscess of unspecified foot; M86.8X7 Other osteomyelitis, ankle and foot; F32.9 Major depressive disorder, single episode, unspecified; N40.0 Benign prostatic hyperplasia without lower urinary tract symptoms; L97.529 Non-pressure chronic ulcer of other part of left foot with unspecified severity; D64.9 Anemia, unspecified; Z90.89 Acquired absence of other organs; Z89.412 Acquired absence of left great toe; Z79.899 Other long term (current) drug therapy
CPT/HCPCS: 36415; 36416; 80048; 80202; 82947; 83036; 85025; 85027; 90471; 90686; 93970; 96365; 96367; A9577; G0008; J0131; J2001; J2405; J2543; J2704; J3010; J3370; J3490; J7050; S0020; S0028